=== PATIENT | female | born 2000 | race Caucasian/White ===

== ENCOUNTER 2018-04-22 01:20 | Emergency (ER) | payer SELFPAY ==
[~2018-04-22] VITALS: Ht 152.4 cm; Wt 61.4 kg
[2018-04-22 01:22] VITALS: TEMP 97
[2018-04-22 03:25] LABS: TRICYCLIC ANTIDEPRESS URINE NEGATIVE
[2018-04-22 04:06] VITALS: BP 98/70; PULSE 77
== END 2018-04-22 04:10 | disposition home or self-care (01) ==
LOC: COL.ER 01:20
PROVIDERS: Nurse Practitioner
DX: F10.129 Alcohol abuse with intoxication, unspecified (principal); F12.10 Cannabis abuse, uncomplicated; J45.909 Unspecified asthma, uncomplicated; Y90.5 Blood alcohol level of 100-119 mg/100 ml
CPT/HCPCS: J2405